=== PATIENT | female | born 1955 | race Caucasian/White ===

== ENCOUNTER → 2018-08-29 11:18 | Outpatient (CLI) | payer MEDICARE, OTHER, SELFPAY ==
--- NOTE | 2018-08-29 | DI.MRI.S_ITS ---
PROCEDURE: MR KNEE RT WO CON INDICATIONS: PRIMARY OSTEOARTHRISTIS OF RIGHT KNEE TECHNIQUE: Noncontrast sagittal PD fast spin echo and T2 fast spin echo with fat saturation, sagittal 3-D FLASH with fat saturation; coronal T1 spin echo and PD fast spin echo with fat saturation, and axial PD fast spin echo with fat saturation through the knee. COMPARISON: [facility] [place], CR, XR KNEE ARTHRITIC SERIES RT, 07/28/2018, 11:55. [facility], RG, KNEE 3VW (RT), 01/12/2018, 15:44. FINDINGS: Image quality: Excellent. Menisci: There is medial meniscal extrusion. There is degenerative tear involving the body and posterior horn of the medial meniscus. The lateral meniscus demonstrates normal morphology and internal signal. The meniscal root ligaments appear intact. Cruciate ligaments: The anterior and posterior cruciate ligaments appear intact. There is mucoid degeneration in the anterior cruciate ligament. Medial structures: The medial collateral ligament appears intact. The semimembranosus tendon insertions and meniscocapsular junction appear intact. Visualized portions of the pes anserinus tendons appear normal. No abnormal bursal fluid. Lateral structures: The lateral collateral ligament and the biceps femoris tendon appear intact. The popliteus tendon appears normal. Iliotibial band appears normal. Anterior structures: The quadriceps and patellar tendons appear intact. Patellar alignment is normal. No femoral trochlear dysplasia or ventral trochlear prominence. No edema in the infrapatellar fat pad. Bones and cartilage: No bone marrow contusions or fractures. There is tricompartmental cartilage loss, most significant in the medial femorotibial compartment and the patellofemoral compartment. Joint space: There is moderate-sized knee joint effusion. Moderate sized Hernandez's cyst. Normal appearing synovial plicae are incidentally noted. IMPRESSION: 1. Medial meniscus extrusion and degenerative tear of the posterior horn and body of the medial meniscus. 2. Mucoid degeneration of the anterior cruciate ligament. 3. Moderate knee joint effusion. 4. Moderate-sized Hernandez's cyst. Dictated by: Guillermina See M.D. on 08/29/2018 at 13:46 Approved by: Guillermina See M.D. on 08/29/2018 at 17:22
== END ==
PROVIDERS: PCP Physician Assistant Medical; Visit Provider Orthopaedic Surgery
DX: M17.11 Unilateral primary osteoarthritis, right knee (principal); M25.461 Effusion, right knee; M71.21 Synovial cyst of popliteal space [Baker], right knee
CPT/HCPCS: 73721

== ENCOUNTER → 2018-12-15 13:31 | Outpatient (CLI) | payer MEDICARE, OTHER, SELFPAY ==
[2018-12-15 13:48] LABS: Bacteria Urine None Seen; RBC Urine None Seen (0-5/HPF)
[2018-12-15 14:02] LABS: Add Manual Diff / Slide Review NO; Basophils Absolute Auto 0 /uL (0-100); Basophils Percent Auto 0.4 % (0-2); Eosinophils Absolute Auto 100 /uL (0-450); Eosinophils Percent Auto 1.3 % (2-4); Hematocrit 43.3 % (36-46); Hemoglobin 14.8 g/dL (12.0-16.0); Lymphocytes Absolute Auto 1500 /uL (1100-4500); Mean Corpuscular HGB Conc 34.1 % (30-36); Mean Corpuscular Hemoglobin 30.9 PG (26-34); Mean Corpuscular Volume 90.6 fL (80-100); Monocytes Absolute Auto 800 /uL (0-900); Neutrophils Absolute Auto 6900 /uL (1500-7000); Neutrophils Percent Auto 73.3 % (50-75); Platelet Count 230 X10^3/uL (150-400); Red Blood Cell Count 4.78 X10^6/uL (4.0-5.2); Red Cell Distribution Width 13.4 % (11.6-14.8); White Blood Cell Count 9.4 X10^3/uL (4.5-11.0)
[2018-12-15 14:30] LABS: Blood Urea Nitrogen 14 mg/dL (7-17); Calcium 9.7 mg/dL (8.4-10.2); Carbon Dioxide 26 mmol/L (22-32); Chloride 99 mmol/L (98-107); Estimated Glomerular Filt Rate > 60.0 mL/min (>60); Glucose 102 mg/dL (80-110); HEMOLYSIS < 15 (0-50); Potassium 4.7 mmol/L (3.4-5.1); Sodium 136 mmol/L (137-145)
[2018-12-15 14:31] LABS: Hemoglobin A1C% w Est Avg Glu 5.5 % (4.0-6.0)
[2018-12-15 15:03] LABS: Appearance Urine UA CLEAR; Bilirubin Urine UA NEGATIVE (NEGATIVE); Color Urine UA YELLOW; Glucose Urine UA NEGATIVE (Negative); Ketones Urine UA NEGATIVE (NEGATIVE); Leukocyte Esterase Urine UA NEGATIVE (NEGATIVE); Nitrite Urine UA NEGATIVE (Negative); Occult Blood Urine UA NEGATIVE (Negative); Protein Urine UA NEGATIVE (Negative); Specific Gravity Urine UA <=1.005 (1.000-1.035); Urobilinogen Urine UA 0.2 E.U./dL (0.2)
[2018-12-15 15:28] LABS: Culture Indicated Urine Cult Not Indicated; Squamous Epithelial Cell Urine 0-1 /HPF (0-5/HPF); WBC Urine 0-1/HPF (0-5/HPF)
== END ==
PROVIDERS: PCP Physician Assistant Medical; Visit Provider Orthopaedic Surgery
DX: Z01.818 Encounter for other preprocedural examination (principal); Z01.812 Encounter for preprocedural laboratory examination; N39.9 Disorder of urinary system, unspecified; Z13.1 Encounter for screening for diabetes mellitus; R73.9 Hyperglycemia, unspecified
CPT/HCPCS: 36415; 80048; 81001; 83036; 85025; 93005

== ENCOUNTER → 2023-10-13 13:13 | Outpatient (CLI) | payer OTHER, SELFPAY ==
--- NOTE | 2023-10-13 13:17 | DI.MRI.S_ITS ---
PROCEDURE: MR KNEE LT WO CON INDICATIONS: Unilateral primary osteoarthritis, left knee TECHNIQUE: Noncontrast sagittal PD fast spin echo and T2 fast spin echo with fat saturation, sagittal 3-D FLASH with fat saturation; coronal T1 spin echo and PD fast spin echo with fat saturation, and axial PD fast spin echo with fat saturation through the knee. COMPARISON: [facility] [place], CR, XR KNEE 4+ VIEWS LEFT, 09/19/2023, 16:44. [facility], MR, MR KNEE RT WO CON, 08/29/2018, 11:43. FINDINGS: Image quality: Excellent. Bones: Mild subarticular marrow edema is present at the weight-bearing medial tibial plateau (/) and, to a lesser degree, at the weight-bearing medial femoral condyle. A few subchondral cysts are present at the dorsal aspect of the lateral patellar ridge and median patellar ridge. The bone marrow signal is otherwise normal. There is no acute fracture or dislocation. Joints: There is small-moderate knee joint effusion with synovial proliferation. There is mild knee osteoarthritis. Hernandez's cyst: Moderate 2.9 x 2.5 x 7.5 cm cyst. Menisci: There is a complex tear of the posterior horn of the medial meniscus , primarily involving the posterior horn and posterior root attachment junction (/), with resultant 4 mm of meniscal body extrusion into the medial gutter. There is likely an oblique undersurface tear within the body of the medial meniscus as well (/20). The lateral meniscus and its posterior root attachment are normal. Cruciate ligaments: The anterior cruciate ligament is normal. The posterior cruciate ligament is normal. Collateral ligaments: The medial collateral ligament complex is normal. The lateral collateral ligament complex is normal. Popliteus Muscle/Tendon: The popliteus muscle and tendon are normal. Extensor mechanism: The quadriceps tendon is normal. The patellar tendon is normal. The medial and lateral patellar retinacular attachments are normal. Articular cartilage: The partial-thickness chondral loss is present at the posterior weight-bearing medial and lateral compartment (10/22). Partial-thickness chondral loss and delaminating tears are present at the patellofemoral compartment (5/13). Other: Mild prepatellar and infrapatellar subcutaneous edema is present. IMPRESSION: 1. Complex tear of the medial meniscus, predominantly involving the junction between the posterior horn and posterior root attachment, with 4 mm of meniscal body extrusion into the medial gutter. 2. Mildly osteoarthritis with associated articular cartilage defects, moderate knee joint effusion and synovitis, and reactive marrow edema in the medial compartment. Dictated by: Abhinav Valentin M.D. on 10/14/2023 at 15:49 Approved by: Abhinav Valentin M.D. on 10/14/2023 at 16:00
== END ==
PROVIDERS: PCP Physician Assistant Medical; Referring Provider Physician Assistant Surgical; Visit Provider Physician Assistant Surgical
DX: S83.232A Complex tear of medial meniscus, current injury, left knee, initial encounter (principal); M17.12 Unilateral primary osteoarthritis, left knee; M25.462 Effusion, left knee; M71.22 Synovial cyst of popliteal space [Baker], left knee; X58.XXXA Exposure to other specified factors, initial encounter
CPT/HCPCS: 73721